=== PATIENT | female | born 1965 | race Caucasian/White ===

== ENCOUNTER 2024-07-05 07:30 | Day surgery (SDC) | payer BC, SELFPAY ==
[2024-07-03 14:32] VITALS: BMI 24.0
[2024-07-05 08:34] VITALS: BP 117/62; PULSE 60; RESP 17; TEMP 36.6; O2SAT 99
[2024-07-05 09:08] VITALS: O2SAT 99
--- NOTE | 2024-07-05 09:11 | P.PNANES_ITS ---
[facility] Disclaimer: The information contained in this section may have been updated after the patient was seen, as this information can be updated by other users. Medical History (Updated 07/03/24 @ 14:30 by Kym Azul RN) History of hyperlipidemia Surgical History (Updated 07/03/24 @ 14:25 by Kym Azul RN) History of repair of right rotator cuff History of bilateral oophorectomy History of colonoscopy Family History (Updated 07/03/24 @ 14:30 by Kym Azul RN) Other No significant family history Social History (Updated 07/03/24 @ 14:31 by Kym Azul RN) Smoking Status: Never smoker alcohol intake: never substance use type: denies use current occupational status: retired Travel in the last 8 weeks: None caffeine: Yes [facility] Anesthesia Checklist Patient Identification Patient Identification: Arm Band and Verbal (Name & ) Structural Data Admitted From: Home Planned Operative Procedure/s: Colonoscopy Consent for Planned Operative Procedure(s) Verified: Yes Verified Documents: Surgical Consent and History and Physical NPO Status Verified Time NPO: 04:45 Additional verifications Patient : No Cardiovascular Assessment Heart Sounds: S1 & S2 Pulse Rhythm: Irregular Peripheral Edema: No Airway Assessment Mallampati Score:: Class II C-Spine Mobility Assessed: Yes TMJ Mobility Assessed: Yes Dentition: Good Dentition Neurological Assessment Level of Consciousness: Awake, Alert, Appropriate and Follows Commands Hx Seizures: No Numbness or tingling in extremities: No Anesthesia Plan Anesthesia Risk discussed: Yes Anesthesia Plan: Verified ASA Class: II Anesthesia Type: MAC
--- NOTE | 2024-07-05 09:19 | EXP.HP ---
History of Present Illness *Admission Date: 07/05/24 *Reason for visit:: Surveillance colonoscopy/screening *History of present illness: Mrs. Burnham is a 59-year-old female who is here for surveillance colonoscopy. Her last colonoscopy was 10 years ago and she had no adenomatous polyps. The examination is deemed medically necessary for surveillance/screening. The patient has been seen, interviewed and examined prior to the procedure by both myself and the anesthesia provider. [facility] Disclaimer: The information contained in this section may have been updated after the patient was seen, as this information can be updated by other users. Medical History (Updated 07/05/24 @ 09:20 by Pb Sanders II, MD) History of hyperlipidemia Surgical History (Updated 07/03/24 @ 14:25 by Kym Azul RN) History of repair of right rotator cuff History of bilateral oophorectomy History of colonoscopy Family History (Updated 07/03/24 @ 14:30 by Kym Azul RN) Other No significant family history Social History (Updated 07/05/24 @ 09:12 by Mariangel Schaffer CRNA) Smoking Status: Never smoker alcohol intake: never substance use type: denies use current occupational status: retired Travel in the last 8 weeks: None caffeine: Yes Have you lived/traveled outside [place] in past 30 days?: No Contact w/someone who lives/traveled outside [place] past 30 days?: No Exposure to someone with infectious disease in past 14 days?: No Do you have a fever (greater than 100.4 F or 38 C)?: No Have you tested positive for COVID-19: No Exposed to someone with COVID-19 in past 14 days?: No Do you have a sore throat?: No Do you have a cough?: No Do you have any weakness?: No Do you have any diarrhea?: No Are you experiencing any unusual bleeding?: No Do you have any muscle aches/pain?: No Do you have any abdominal pain?: No Are you experiencing loss of taste or smell?: No Review of Systems Review of Systems Review of systems (narrative): Negative *Cardiovascular Comments: Negative *Gastrointestinal Comments: Negative *Genitourinary Comments: Negative *Musculoskeletal Comments: Negative *Neurologic Comments: Negative Meds Home Medications and Allergies Home Medications ?Medication ?Instructions ?Recorded ?Confirmed ?Type atorvastatin 10 mg tablet 10 mg PO DAILY 07/03/24 07/03/24 History fexofenadine 60 mg tablet (Jacquelyn 60 mg PO BID 07/03/24 07/03/24 History Allergy) multivitamin 1 tab PO DAILY 07/03/24 07/03/24 History New Prescriptions to Start Prescriptions: Allergies Allergy/AdvReac Type Severity Reaction Status Date / Time No Known Allergies Allergy Verified 07/05/24 09:11 Exam Data for Last 24 hours Vital signs and Labs for Last 24 Hours: Temp Pulse Resp BP Pulse Ox O2 Del Method O2 Flow Rate 97.9 F 60 17 117/62 99 Nasal Cannula 5 07/05/24 08:34 07/05/24 08:34 07/05/24 08:34 07/05/24 08:34 07/05/24 08:34 07/05/24 09:08 07/05/24 09:08 I & O for Last 24 hours: Intake & Output 07/02/24 07/03/24 07/04/24 07/05/24 23:59 23:59 23:59 23:59 Weight 140 lb *Routine HEENT Exam Head: Present normocephalic Eye: Present EOMI and PERRL ENT: Present mucous membranes moist *Routine Neck Exam Neck: Present supple *Routine Respiratory Exam Respiratory: Present CTA bilaterally *Routine Cardiovascular Exam Cardiovascular: Present RRR *Routine Abdominal Exam Abdominal: Present soft and normoactive bowel sounds; Absent tenderness *Routine Rectal Exam Rectal:: deferred *Routine Genitalia Exam Genitalia:: deferred *Routine Extremities Exam Extremities: Absent cyanosis, clubbing or edema *Routine Skin Exam Skin: Present warm; Absent rash *Routine Neurological Exam Neurological: Present alert and oriented X3 Assessment and Plan *Assessment and plan (1) Screening for colon cancer: Status: Acute Category: Medical Code(s): Z12.11 - Encounter for screening for malignant neoplasm of colon Plan A/P: 1. Screening for colon cancer is the preprocedural diagnosis. The patient will be anesthetized/sedated using MAC sedation. The patient has been seen and examined. Cardiac and lung assessment prior to the examination is stable. Proceed with planned screening/surveillance colonoscopy
--- NOTE | 2024-07-05 09:20 | HMH.PROCNOTE ---
[facility] Procedure Note Date: 07/05/24 Time: 09:33 Procedure Note:: Colonoscopy Procedure Report: Colonoscopy with cold snare polypectomy Endoscopist: Pb Sanders II, MD Referring physician: Justin Jauregui MD [id number] [facility], [place] [address] Date of Procedure: July 05, 2024 Equipment: Olympus 190 variable stiffness pediatric colonoscope Sedation: MAC sedation Indication: Mrs. Burnham is a 59-year-old female who is here for follow-up surveillance/screening colonoscopy. Her last colonoscopy was 10 years ago at which time she did not have any adenomatous polyps. The patient reports no abdominal pain, weight loss, change in her bowel habits or rectal bleeding. She reports no family history of colon cancer. Procedure: Prior to the procedure, a history and physical exam was performed, and patient's medications and allergies were reviewed. The risks, benefits and alternatives of the sedation and procedure were discussed with the patient. All questions were answered and informed consent was obtained. The patient was brought to the procedure room. Patient identification and proposed procedure were verified by the physician and the nurse. The patient was placed in a left lateral decubitus position and the scope was passed under direct vision. Throughout the procedure, the patient's blood pressure, pulse, and oxygen saturations were monitored continuously. The colonoscopy was accomplished without difficulty. The patient tolerated the procedure well. Findings: On digital rectal examination there was normal rectal tone. There were no external hemorrhoids. The colonoscope was introduced through the anal canal to the rectum and advanced to the cecum. The ileocecal valve and appendiceal orifice were identified. The scope was advanced a short distance into the ileum which appeared grossly normal. The scope was then withdrawn into the colon. The cecum, ascending, transverse and descending colon were grossly normal. There was a diminutive sessile 3 to 4 mm polyp in the sigmoid colon which was hyperplastic appearing and was removed via cold snare polypectomy. The remainder of the sigmoid and rectum were normal. There were no other mucosal abnormalities identified. Upon retroflexion within the rectum there were grade 1 internal hemorrhoids.The preparation was excellent throughout with [place] Preparation Score of 9. The cecal time was 14 minutes. Impression: 1. Diminutive 3 to 4 mm hyperplastic appearing sigmoid polyp otherwise normal colonoscopy with intubation of the terminal ileum Plan: I will follow-up the polyp histology and recommend repeat surveillance colonoscopy again in 10 years if the polyp is hyperplastic.
[2024-07-05 09:38] VITALS: BP 93/57; PULSE 77; RESP 15; TEMP 36.2; O2SAT 98
[2024-07-05 09:48] VITALS: BP 104/58; PULSE 64; RESP 16; O2SAT 98
[2024-07-05 09:58] VITALS: BP 102/46; PULSE 55; RESP 17; O2SAT 99
[2024-07-05 10:08] VITALS: BP 102/60; PULSE 60; RESP 15; TEMP 36.8; O2SAT 98
== END 2024-07-05 10:08 | disposition home or self-care (01) ==
PROVIDERS: Visit Provider Internal Medicine Gastroenterology
PROC: (CPT 45385; principal; 2024-07-05 09:00)
DX: D12.5 Benign neoplasm of sigmoid colon (principal); K64.0 First degree hemorrhoids; Z12.11 Encounter for screening for malignant neoplasm of colon
CPT/HCPCS: 45385